=== PATIENT | female | born 1985 | race Two or more races ===

== ENCOUNTER 2024-05-29 13:51 | Emergency (ER) | payer MEDICAID, OTHER ==
[~2024-05-29] VITALS: Ht 167.6 cm; Wt 57.8 kg
[2024-05-29 14:50] VITALS: BP 136/79; PULSE 87; RESP 16; TEMP 99.2; O2SAT 98
[2024-05-29] MEDS ORDERED: NAPR-746 PO (14:57)
== END 2024-05-29 15:07 | disposition home or self-care (01) ==
LOC: ER 13:55
DX: G44.209 Tension-type headache, unspecified, not intractable (principal)